=== PATIENT | female | born 1990 | race Caucasian/White ===

== ENCOUNTER 2020-03-18 19:22 | Emergency (ER) | payer SELFPAY ==
[~2020-03-18] VITALS: Ht 167.6 cm; Wt 111.4 kg
[2020-03-18 19:35] VITALS: BP 152/96; TEMP 98.1
[2020-03-18] MEDS ORDERED: DOXYCYCLINE HY100 MG PO (20:08)
[2020-03-18 20:21] VITALS: PULSE 93
== END 2020-03-18 20:23 | disposition home or self-care (01) ==
LOC: COL.ER 19:22
DX: L03.90 Cellulitis, unspecified (principal); F17.210 Nicotine dependence, cigarettes, uncomplicated